=== PATIENT | male | born 1995 | race American Indian/Alaskan Native ===

== ENCOUNTER 2018-10-23 18:53 | Emergency (ER) | payer OTHER ==
[2018-10-23 19:29] VITALS: BP 137/81
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
== END 2018-10-24 00:15 | disposition home or self-care (01) ==
LOC: ED 18:53
DX: M25.512 Pain in left shoulder (principal); M54.2 Cervicalgia; V89.2XXA Person injured in unspecified motor-vehicle accident, traffic, initial encounter; Y93.89 Activity, other specified; Y92.488 Other paved roadways as the place of occurrence of the external cause; Y99.8 Other external cause status
CPT/HCPCS: 72040